=== PATIENT | female | born 1955 ===

== ENCOUNTER 2019-08-21 06:07 | Day surgery (SDC) | payer OTHER ==
[~2019-08-21 06:07] MED LIST: ADULT LOW DOSE81 M1 PO; BREO ELLIPTA 21 EACH; CARDESARTAN PO; FOLIC ACID PO; FOSAMAX PO; HORIZANT300 MG PO; PREDNISONE PO; SYNTHROID137 MCG PO
== END 2019-08-21 17:15 | disposition home or self-care (01) ==
LOC: CIR.AMB 06:07 → ADM 08:45 → CIR.AMB 14:30
DX: M19.231 Secondary osteoarthritis, right wrist (principal); M65.841 Other synovitis and tenosynovitis, right hand
CPT/HCPCS: 20902; 25116; 25337; 25830; C1776

== ENCOUNTER 2019-08-24 11:18 | Inpatient (IN) | payer OTHER ==
[~2019-08-24] VITALS: Ht 160 cm; Wt 130.2 kg
--- NOTE | 2019-08-24 11:38 | NUR ---
SE RECIBE FEMINA DE 64 ANOS,ALERTA,ORIENTADA EN [place] ESFERAS,EN [facility]OR [facility],JUNTO A FAMILIAR. PACIENTE REFIERE PRESION BAJA,ARDOR EN [place], PUNZADAS EN LADO DERECHO DEL PECHO.SINTOMAS COMENZARON HACEN [place] FRNACES. OPERADA DE SURAJ IZQUIERDA EL 08/21/[address]JOSE Tonya CALLEJAS. SE UBICA PACIENTE EN AREA DE PASILLO PARA EVALUACION MEDICA.
--- NOTE | 2019-08-24 12:04 | NUR ---
SE REALIAZA EKG EL CUAL ES PRESENTADO A QUIEN EVALUA Y FIRMA EL MISMO,INDICA PACIENTE SERA EVALUADA POR MD. EN AREA DE FT. SE SANTO PACIENTE UBICADA EN AREA DE PASILLO PARA EVALUACION MEDICA.
--- NOTE | 2019-08-24 14:47 | NUR ---
SE RECIBE PTE FEMENINA DE 64 YRS ALERTA CONCIENTE Y TRANQUILA EN COMPANIA DE FAMILIAR. PTE ES EVALUADA POR LA EDIN. POLLY QIUEN ORDENA TRATAMIENTO LA CUAL SE EJCUTA . SE ACOMOPADA EN CAMA CON BARANDAS ELEVADA Y MONITOR CARDIACO SE OBSERVA POR CAMBIOS.
[2019-08-29] MEDS ORDERED: LEVOTHYROXINE137 MCG PO (08:56)
[2019-08-29] MEDS ORDERED: ATACAND32 MG PO (08:56)
[2019-08-29] MEDS ORDERED: FOLIC ACID1 MG PO (08:56)
[2019-08-29] MEDS ORDERED: GABAPENTIN300 MG PO (08:56)
== END 2019-08-29 10:34 | disposition home or self-care (01) | DRG 194 ==
LOC: ER 11:18 → MEDJ 19:43
PROVIDERS: ADMIT Internal Medicine
PROC: 8E0ZXY6 Isolation (ICD-10-PCS; principal; 2019-08-24)
PROC: 3E0F73Z Introduction of Anti-inflammatory into Respiratory Tract, Via Natural or Artificial Opening (ICD-10-PCS; 2019-08-24)
PROC: 3E0F7GC Introduction of Other Therapeutic Substance into Respiratory Tract, Via Natural or Artificial Opening (ICD-10-PCS; 2019-08-24)
PROC: 4A033R1 Measurement of Arterial Saturation, Peripheral, Percutaneous Approach (ICD-10-PCS; 2019-08-24)
DX: J10.1 Influenza due to other identified influenza virus with other respiratory manifestations (principal); J45.901 Unspecified asthma with (acute) exacerbation; J98.11 Atelectasis; E66.9 Obesity, unspecified; I10 Essential (primary) hypertension; G47.30 Sleep apnea, unspecified; R09.02 Hypoxemia; M06.9 Rheumatoid arthritis, unspecified; Z79.52 Long term (current) use of systemic steroids